=== PATIENT | female | born 1980 | race Caucasian/White ===

== ENCOUNTER 2017-03-09 06:24 | Emergency (ER) | payer SELFPAY ==
--- NOTE | 2017-03-09 07:46 | RAD ---
CHEST 2 VIEWS: HISTORY: Cough. Dyspnea. FINDINGS: No comparison. The cardiac silhouette is magnified by projection. Pulmonary vasculature is unremar kable. There is elevation of the lateral margin of the right hemidiaphragm. No lobar consolidation , pneumothorax, or pleural fluid are apparent. IMPRESSION: Marked elevation of the lateral aspect of the right hemidiaphragm, age-indeterminate. While this co uld represent a chronic/congenital process, further evaluation is warranted. Please consider noneme rgent CT chest to evaluate for a possible cause of right diaphragmatic abnormality. POS: [facility]
== END 2017-03-09 07:22 | disposition home or self-care (01) ==
LOC: ERS 06:24
DX: J01.90 Acute sinusitis, unspecified (principal); F17.210 Nicotine dependence, cigarettes, uncomplicated
CPT/HCPCS: 71020